=== PATIENT | male | born 1975 | race Caucasian/White ===

== ENCOUNTER 2022-01-08 07:04 | Inpatient (IN) | payer MEDICAID ==
[~2022-01-08] VITALS: Ht 175.3 cm; Wt 62.6 kg
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
[2022-01-08 13:44] VITALS: BP 121/80
[2022-01-08] MEDS ORDERED: magnesium hydroxide 30ml (MOM) UD suspension PO PRN (14:00)
[2022-01-08] MEDS ORDERED: acetaminophen 325mg tablet PO PRN ×2 (14:00)
[2022-01-08] MEDS ORDERED: mag hydrox/Alum hydrox/simeth 30ml oral suspension PO PRN (14:00)
[2022-01-08] MEDS ORDERED: loperamide 2mg capsule PO PRN (14:00)
[2022-01-08] MEDS ORDERED: NO HOME MEDS (18:41)
[2022-01-08 19:00] VITALS: BP 118/69
[2022-01-08] MEDS: hydrOXYzine 25 MG tablet PO PRN (21:32)
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
[2022-01-09 09:19] LABS: HEMOGLOBIN A1C 5.8 % (4.5-6.2)
[2022-01-09 09:21] LABS: CHOL/HDL RATIO 5.1 (0.00-4.99); CHOLESTEROL 278 MG/DL (0-200); HDL CHOLESTEROL 55 MG/DL (35-60); LDL CHOLESTEROL 190 MG/DL (50-100)
[2022-01-09 10:14] VITALS: BP 109/70
[2022-01-09 15:07] LABS: TRIGLYCERIDES 73 MG/DL (20-135)
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
[2022-01-09 19:45] VITALS: BP 105/76
[2022-01-09] MEDS: hydrOXYzine 25 MG tablet PO PRN (22:13)
[2022-01-09] MEDS: Melatonin 3mg tablet PO PRN (22:14)
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
[2022-01-10 08:00] VITALS: BP 117/79
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
[2022-01-10 19:53] VITALS: BP 112/75
[2022-01-10] MEDS: Melatonin 3mg tablet PO PRN (20:59)
[2022-01-10] MEDS: hydrOXYzine 25 MG tablet PO PRN (21:45)
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
[2022-01-11 08:00] VITALS: BP 112/70
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
[2022-01-11] MEDS: hydrOXYzine 25 MG tablet PO PRN (20:38)
[2022-01-11] MEDS: Melatonin 3mg tablet PO PRN (20:38)
[2022-01-11 20:43] VITALS: BP 123/87
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
[2022-01-12 07:40] VITALS: BP 118/64
--- NOTE | 2022-01-12 09:48 | NUR ---
Initial: Pt admit for psychosis/danger to others. Currently on a regular diet and eating well, documented with mostly 100% PO intake meeting estimated nutrient needs. LBM 01/11. No edema or wounds per EMR. No nutrition intervention implemented at this time. Will continue to follow. Recommendations: 1) Continue regular diet 2) Bowel care PRN 3) Weekly scaled weights Addendum: 01/12/22 at [address] Amended: Links added.
--- NOTE | 2022-01-12 15:38 | NUR ---
THERAPEUTIC GROUP Client attended group, entering in and out, occasionally speaking softly to people with sentences that appeared difficult to understand. Client appeared to be softly talking to himself. Group focus was resilience and responding to change, specifically psychosocial education about change-related anxiety, and coping mechanisms. Group was a peer discussion, sharing ideas. Peer ideas included smells (essential oils, things that smell like peppermint), talking to someone, walking, hydrating and eating, trying to get good sleep, and avoiding using substances specifically alcohol to try to get some sleep. Client did not share directly within group, and was quietly in and out of the room.
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
[2022-01-12 19:15] VITALS: BP 108/75
[2022-01-12] MEDS: Melatonin 3mg tablet PO PRN (20:40)
[2022-01-12] MEDS: hydrOXYzine 25 MG tablet PO PRN (20:46)
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
[2022-01-13 07:34] VITALS: BP 106/73
--- NOTE | 2022-01-13 12:30 | NUR ---
DISCHARGE NOTE: Pt. discharged to home, driven by transport service. RN went over all discharge paperwork with pt., pt. verbalized understanding and signed all discharge paperwork including firearms restriction, discharge instructions - pt. to make own f/u appointment, pt. refused all medications. Pt. also signed emergency phone numbers, including 911. Pt. denies SI/HI, A/V hallucinations. Pt. is A&Ox4 and in no apparent distress. Pt. given a lunch for the drive home.
== END 2022-01-13 12:25 | disposition home or self-care (01) | DRG 751 ==
LOC: ADULT MH 12:58
PROVIDERS: ADMIT Psychiatry & Neurology Psychiatry; ATTEND Psychiatry & Neurology Psychiatry
DX: F29 Unspecified psychosis not due to a substance or known physiological condition (principal); F22 Delusional disorders; Z82.3 Family history of stroke; Z87.820 Personal history of traumatic brain injury; Z84.89 Family history of other specified conditions
CPT/HCPCS: 36415; 80061; 83036; Q0177